=== PATIENT | female | born 1955 | race Hispanic/Latino ===

== ENCOUNTER 2017-05-24 09:32 | Emergency (ER) | payer OTHER ==
[2017-05-24 09:32] VITALS: BMI 27.4
[2017-05-24] MEDS ORDERED: Morphine 4 mg/ml ISec IVP STA (09:58)
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
[2017-05-24] MEDS ORDERED: Barium Sulfate Susp 2.1% w/v, 2.0% w/w 450 mL Bottle PO ONE (10:01)
[2017-05-24 10:25] VITALS: TEMP 98.5
[2017-05-24 10:36] LABS: ALB/GLOB RATIO 1.4 (1.1-1.8); ALKALINE PHOSPHATASE 91 U/L (38-133); ALT/SGPT 64 U/L (7-56); AST/SGOT 74 U/L (15-39); BASO # 0.03 K/mm3 (0.0-2.0); BASO % 0.6 % (0.0-3.0); BILIRUBIN,TOTAL 0.6 mg/dL (0.2-1.3); BLOOD UREA NITROGEN 15 mg/dL (7-21); CALCIUM 9.4 mg/dL (8.4-10.5); CARBON DIOXIDE 26 mmol/L (21-33); CHLORIDE 104 mmol/L (98-107); EOS # 0.2 (0.0-0.7); EOS % 2.8 % (1.5-5.0); GFR AFRICAN-AMERICAN > 60; GLUCOSE,RANDOM 100 mg/dL (70-110); GRAN # 2.78 (1.4-6.5); GRAN % 52.5 % (50.0-68.0); HEMATOCRIT 39.1 % (36.0-48.0); LIPASE 95 U/L (23-300); LYMPH # 1.9 (1.2-3.4); LYMPH % 36.7 % (22.0-35.0); MEAN CELL VOLUME 88.1 fl (80.0-105.0); MEAN CORPUSCULAR HEMOGLOBIN 29.7 pg (25.0-35.0); MEAN CORPUSCULAR HGB CONC 33.8 g/dl (31.0-37.0); MEAN PLATELET VOLUME 8.2 fl (7.0-11.0); MONO # 0.4 (0.1-0.6); MONO % 7.4 % (1.0-6.0); POTASSIUM 4.2 mmol/L (3.6-5.0); RED CELL DISTRIBUTION WIDTH 13.7 % (11.5-14.5); SODIUM 142 mmol/L (132-148); TOTAL PROTEIN 7.3 g/dL (5.8-8.3); WHITE BLOOD COUNT 5.3 10^3/ul (4.5-11.0)
[2017-05-24 10:40] LABS: INR 0.93 (0.93-1.08)
--- NOTE | 2017-05-24 11:01 | CT ---
PROCEDURE: CT Abdomen and Pelvis without intravenous contrast HISTORY: abd pain r/o obstruction COMPARISON: None. TECHNIQUE: Without contrast.. Contrast Dose: 0 Radiation dose: Total exam DLP = 1024.63 mGy-cm. This CT exam was performed using one or more of the following dose reduction techniques: Automated exposure control, adjustment of the mA and/or kV according to patient size, and/or use of iterative reconstruction technique. FINDINGS: LOWER THORAX: Unremarkable. LIVER: Unremarkable. No gross lesion or ductal dilatation. GALLBLADDER AND BILE DUCTS: Unremarkable. PANCREAS: Unremarkable. No gross lesion or ductal dilatation. SPLEEN: Unremarkable. ADRENALS: Unremarkable. No mass. KIDNEYS AND URETERS: Unremarkable. No hydronephrosis. No solid mass. VASCULATURE: Unremarkable. No aortic aneurysm. BOWEL: Unremarkable. No obstruction. No gross mural thickening. APPENDIX: Unremarkable. Normal appendix. PERITONEUM: Unremarkable. No free fluid. No free air. LYMPH NODES: Unremarkable. No enlarged lymph nodes. BLADDER: Nondistended REPRODUCTIVE: Status post hysterectomy BONES: Multilevel lumbar degenerative disc disease. OTHER FINDINGS: None. IMPRESSION: No acute abnormality. No evidence of bowel obstruction.
[2017-05-24 11:32] VITALS: O2SAT 98
[2017-05-24 11:36] LABS: PH,URINE 5.5 (4.7-8.0); URINE BILIRUBIN NEGATIVE (NEGATIVE); URINE BLOOD NEGATIVE (NEGATIVE); URINE COLOR YELLOW (YELLOW); URINE GLUCOSE (UA) NEGATIVE (NEGATIVE); URINE KETONE TRACE mg/dL (NEGATIVE); URINE LEUKOCYTE ESTERASE TRACE Leu/uL (NEGATIVE); URINE PROTEIN NEGATIVE mg/dL (<30 mg/dL); URINE UROBILINOGEN 0.2 E.U./dL (<1 E.U./dL)
[2017-05-24 11:37] LABS: URINE APPEARANCE CLEAR (CLEAR)
[2017-05-24 11:43] LABS: URINE BACTERIA MOD (NEG); URINE RBC 0 - 2 /hpf (0-2)
[2017-05-24 11:44] LABS: URINE AMORPHOUS SEDIMENT FEW
[2017-05-24 12:32] VITALS: BP 115/60; PULSE 63; RESP 17
== END 2017-05-24 12:50 | disposition home or self-care (01) ==
LOC: ED 09:32
DX: N39.0 Urinary tract infection, site not specified (principal); R10.9 Unspecified abdominal pain; K42.9 Umbilical hernia without obstruction or gangrene
CPT/HCPCS: 74176; 80053; 81001; 82948; 83690; 85025; 85610; 85730; 86850; 86900; 87086; 96374; 96375; 99285; J2270

== ENCOUNTER 2017-11-01 15:44 | Emergency (ER) | payer OTHER ==
[2017-11-01 15:52] VITALS: BMI 33.8
[2017-11-01 16:00] VITALS: RESP 18
[2017-11-01] MEDS ORDERED: Amoxicillin-Clav 875-125 mg Tab PO STA (16:40)
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
[2017-11-01 17:33] VITALS: BP 122/70; PULSE 80; TEMP 97.7; O2SAT 99
== END 2017-11-01 17:25 | disposition home or self-care (01) ==
LOC: ED 15:44
DX: L57.0 Actinic keratosis (principal); R21 Rash and other nonspecific skin eruption

== ENCOUNTER 2018-01-31 12:05 | Emergency (ER) | payer OTHER ==
[2018-01-31 12:18] VITALS: TEMP 98.5
[2018-01-31 12:19] VITALS: BMI 34.7
[2018-01-31] MEDS ORDERED: Sodium Chloride 0.9% 1,000 ML IV STA (12:30)
[2018-01-31] MEDS ORDERED: Morphine 4 mg/ml ISec IVP STA (12:46)
[2018-01-31] MEDS ORDERED: Iohexol 350 MG/100 ML VIAL ONE (12:48)
[2018-01-31 12:50] LABS: URINE BILIRUBIN NEGATIVE (NEGATIVE); URINE BLOOD NEGATIVE (NEGATIVE); URINE GLUCOSE (UA) NEGATIVE (NEGATIVE); URINE LEUKOCYTE ESTERASE NEGATIVE Leu/uL (NEGATIVE); URINE PROTEIN NEGATIVE mg/dL (<30 mg/dL); URINE UROBILINOGEN 0.2 E.U./dL (<1 E.U./dL)
[2018-01-31 12:51] LABS: URINE APPEARANCE CLEAR (CLEAR); URINE COLOR YELLOW (YELLOW)
[2018-01-31] MEDS ORDERED: Barium Sulfate Susp 2.1% w/v, 2.0% w/w 450 mL Bottle PO ONE (12:51)
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
[2018-01-31 13:09] LABS: BASO # 0.02 K/mm3 (0.0-2.0); BASO % 0.3 % (0.0-3.0); EOS # 0.1 (0.0-0.7); EOS % 1.6 % (1.5-5.0); GRAN # 3.5 (1.4-6.5); GRAN % 60.7 % (50.0-68.0); HEMOGLOBIN 12.8 g/dL (12.0-16.0); LYMPH # 1.8 (1.2-3.4); LYMPH % 30.5 % (22.0-35.0); MEAN CELL VOLUME 88.1 fl (80.0-105.0); MEAN PLATELET VOLUME 8.6 fl (7.0-11.0); MONO # 0.4 (0.1-0.6); MONO % 6.9 % (1.0-6.0); RBC 4.27 10^6/uL (3.5-6.1); WHITE BLOOD COUNT 5.8 10^3/ul (4.5-11.0)
[2018-01-31 13:18] LABS: INR 1.04 (0.93-1.08); PARTIAL THROMBOPLASTIN TIME 28.9 Seconds (25.1-36.5)
[2018-01-31 13:25] VITALS: O2SAT 98
[2018-01-31 13:28] LABS: ALB/GLOB RATIO 1.3 (1.1-1.8); ALBUMIN 4.1 g/dL (3.0-4.8); ALT/SGPT 96 U/L (7-56); AST/SGOT 153 U/L (14-36); BLOOD UREA NITROGEN 10 mg/dL (7-21); GFR AFRICAN-AMERICAN > 60; GFR NON-AFRICAN AMERICAN > 60; LIPASE 58 U/L (23-300)
[2018-01-31 15:01] VITALS: RESP 18
--- NOTE | 2018-01-31 15:36 | CT ---
PROCEDURE: CT Abdomen and Pelvis with Oral contrast. HISTORY: abd pain r/o obstruction COMPARISON: Hernia. TECHNIQUE: Contiguous axial images of the abdomen and pelvis. Oral contrast was administered. No IV contrast given. Coronal and Sagittal reformats generated. Radiation dose: Total exam DLP = This CT exam was performed using one or more of the following dose reduction techniques: Automated exposure control, adjustment of the mA and/or kV according to patient size, and/or use of iterative reconstruction technique. FINDINGS: LOWER THORAX: Evaluation of the lung bases reveals mild interstitial change and scarring, without focal infiltrate or effusion. Distal esophagus shows minor thickening without hiatal hernia. No pericardial effusion is seen. Visualized stomach and duodenum are unremarkable. LIVER: Noncontrast images of the liver show no evidence of new mass or intrahepatic ductal dilatation. GALLBLADDER AND BILE DUCTS: Unremarkable. PANCREAS: Unremarkable. No mass. No ductal dilatation. SPLEEN: Unremarkable. No splenomegaly. ADRENALS: Unremarkable. KIDNEYS AND URETERS: Kidneys show no evidence of hydronephrosis, mass, or calculus. No perinephric changes are seen. BLADDER: Bladder is decompressed but otherwise normal in outline. REPRODUCTIVE: Uterus appears to been previously removed. No pelvic masses are noted. APPENDIX: Unremarkable. BOWEL: Colon shows no evidence of colonic wall thickening or pericolonic inflammatory change. No small bowel obstruction is appreciated. There may be some slight fold thickening of the small bowel which may suggest mild enteritis although no significant mesenteric thickening or adenopathy is noted. PERITONEUM: No ascites is seen. There is evidence of a previously noted small umbilical hernia with fat but no appreciable bowel. LYMPH NODES: Unremarkable. No enlarged lymph nodes. VASCULATURE: Unchanged BONES: Degenerative changes are seen in the spine. No lytic process is noted. OTHER FINDINGS: None. IMPRESSION: No appreciable CT scan evidence of bowel obstruction. No CT scan evidence of acute colitis. Mild fold thickening of the small bowel which may suggest some mild enteritis. No CT scan evidence of appendicitis. Stable small umbilical
[2018-01-31 15:39] VITALS: BP 114/66; PULSE 62
== END 2018-01-31 17:35 | disposition home or self-care (01) ==
LOC: ED 12:05
DX: R10.9 Unspecified abdominal pain (principal); I10 Essential (primary) hypertension; I48.91 Unspecified atrial fibrillation; M06.9 Rheumatoid arthritis, unspecified; J44.9 Chronic obstructive pulmonary disease, unspecified
CPT/HCPCS: 74176; 80053; 81003; 83690; 85025; 85610; 85730; 87086; 96374; 99284; J2270; J7040

== ENCOUNTER 2018-02-20 19:47 | Emergency (ER) | payer OTHER ==
[2018-02-20 19:48] VITALS: BMI 34.7
[2018-02-20 20:10] VITALS: RESP 18; TEMP 98.2
[2018-02-20] MEDS ORDERED: Clotrimazole 1% Cream(30 gm) TOP STA (20:20)
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
[2018-02-20 20:53] VITALS: BP 118/62; PULSE 82; O2SAT 99
== END 2018-02-20 20:56 | disposition home or self-care (01) ==
LOC: ED 19:47
DX: B36.8 Other specified superficial mycoses (principal); L03.311 Cellulitis of abdominal wall

== ENCOUNTER 2018-09-24 11:35 | Emergency (ER) | payer OTHER ==
[2018-09-24 11:56] VITALS: BMI 26.8
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
--- NOTE | 2018-09-24 12:43 | RAD ---
Date of service: 09/24/2018 HISTORY: chest pain COMPARISON: 09/23/2015 FINDINGS: LUNGS: No active pulmonary disease. PLEURA: No significant pleural effusion identified, no pneumothorax apparent. CARDIOVASCULAR: No aortic atherosclerotic calcification present. Normal cardiac size. No pulmonary vascular congestion. OSSEOUS STRUCTURES: No significant abnormalities. VISUALIZED UPPER ABDOMEN: Normal. OTHER FINDINGS: None. IMPRESSION: No active disease.
[2018-09-24 13:08] LABS: BASO # 0.02 K/mm3 (0.0-2.0); BASO % 0.3 % (0.0-3.0); EOS % 0.5 % (1.5-5.0); GRAN # 3.49 (1.4-6.5); GRAN % 56.2 % (50.0-68.0); HEMOGLOBIN 13.6 g/dL (12.0-16.0); LYMPH # 2.3 (1.2-3.4); LYMPH % 36.2 % (22.0-35.0); MEAN CORPUSCULAR HEMOGLOBIN 29.6 pg (25.0-35.0); MEAN CORPUSCULAR HGB CONC 33.6 g/dl (31.0-37.0); MEAN PLATELET VOLUME 8.7 fl (7.0-11.0); MONO # 0.4 (0.1-0.6); MONO % 6.8 % (1.0-6.0); RBC 4.6 10^6/uL (3.5-6.1); RED CELL DISTRIBUTION WIDTH 13.9 % (11.5-14.5); WHITE BLOOD COUNT 6.2 10^3/uL (4.5-11.0)
[2018-09-24 13:18] LABS: INR 1.07; PARTIAL THROMBOPLASTIN TIME 24.3 Seconds (25.1-36.5); PROTHROMBIN TIME 12.2 SECONDS (9.4-12.5)
[2018-09-24 13:22] LABS: ALB/GLOB RATIO 1.3 (1.1-1.8); ALBUMIN 4.2 g/dL (3.0-4.8); ALT/SGPT 78 U/L (7-56); AST/SGOT 109 U/L (14-36); BLOOD UREA NITROGEN 10 mg/dL (7-21); CALCIUM 9.1 mg/dL (8.4-10.5); GFR NON-AFRICAN AMERICAN > 60
[2018-09-24 13:32] LABS: B-TYPE NATRIURETIC PEPTIDE 240 pg/mL (0-450); TROPONIN I < 0.01 ng/mL
[2018-09-24 13:39] LABS: FREE T4 1.33 ng/dL (0.78-2.19)
[2018-09-24] MEDS ORDERED: Morphine 2 mg/ml ISec IVP STA (13:52)
[2018-09-24 14:27] VITALS: BP 110/58; PULSE 66; O2SAT 97
[2018-09-24 14:47] VITALS: RESP 17; TEMP 98.1
--- NOTE | 2018-09-24 15:44 | CARD ---
APPROVED REPORT Date of service: 09/24/2018 EKG Measurement Heart [id number] <Conclusion> Sinus rhythm with 1st degree AV block with premature atrial complex with aberrant conduction STTW changes c/w ischemia
== END 2018-09-24 14:46 | disposition home or self-care (01) ==
LOC: ED 11:35
DX: R00.2 Palpitations (principal); I10 Essential (primary) hypertension; J44.9 Chronic obstructive pulmonary disease, unspecified; F41.9 Anxiety disorder, unspecified; Z95.5 Presence of coronary angioplasty implant and graft
CPT/HCPCS: 71045; 80053; 82550; 83615; 83735; 83880; 84100; 84439; 84443; 84484; 85025; 85610; 85730; 93005; 96374; 99283; J2270

== ENCOUNTER 2018-09-28 17:54 | Emergency (ER) | payer OTHER ==
[2018-09-28 18:05] VITALS: BMI 37.5
[2018-09-28 18:13] VITALS: TEMP 98.2
[2018-09-28] MEDS ORDERED: Sodium Chloride 0.9% 1,000 ML IV STA (18:55)
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
[2018-09-28] MEDS ORDERED: Morphine 4 mg/ml ISec IVP STA (19:38)
[2018-09-28 19:47] LABS: PH,URINE 5.5 (4.7-8.0); URINE BILIRUBIN NEGATIVE (NEGATIVE); URINE BLOOD NEGATIVE (NEGATIVE); URINE GLUCOSE (UA) NEGATIVE (NEGATIVE); URINE LEUKOCYTE ESTERASE NEGATIVE Leu/uL (NEGATIVE); URINE PROTEIN NEGATIVE mg/dL (<30 mg/dL); URINE UROBILINOGEN 0.2 E.U./dL (<1 E.U./dL)
[2018-09-28 19:51] LABS: VENOUS BLOOD GAS BASE EXCESS 2.6 mmol/L (0.0-2.0); VENOUS BLOOD GAS PO2 162 mm/Hg (30-55); VENOUS BLOOD PH 7.43 (7.32-7.43)
[2018-09-28 19:51] LABS: URINE APPEARANCE CLEAR (CLEAR); URINE COLOR LIGHT YELLOW (YELLOW)
[2018-09-28 19:54] LABS: BASO # 0.02 K/mm3 (0.0-2.0); BASO % 0.3 % (0.0-3.0); EOS # 0.1 (0.0-0.7); EOS % 1.4 % (1.5-5.0); GRAN # 3.8 (1.4-6.5); GRAN % 51.7 % (50.0-68.0); HEMOGLOBIN 13.8 g/dL (12.0-16.0); LYMPH # 2.9 (1.2-3.4); LYMPH % 39.7 % (22.0-35.0); MEAN CELL VOLUME 88.6 fl (80.0-105.0); MEAN CORPUSCULAR HEMOGLOBIN 29.8 pg (25.0-35.0); MEAN CORPUSCULAR HGB CONC 33.7 g/dl (31.0-37.0); MEAN PLATELET VOLUME 8.8 fl (7.0-11.0); MONO # 0.5 (0.1-0.6); MONO % 6.9 % (1.0-6.0); RBC 4.63 10^6/uL (3.5-6.1); RED CELL DISTRIBUTION WIDTH 13.8 % (11.5-14.5); WHITE BLOOD COUNT 7.4 10^3/uL (4.5-11.0)
[2018-09-28 20:04] LABS: ALB/GLOB RATIO 1.3 (1.1-1.8); ALBUMIN 4.4 g/dL (3.0-4.8); ALT/SGPT 82 U/L (7-56); AST/SGOT 119 U/L (14-36); BLOOD UREA NITROGEN 18 mg/dL (7-21); CALCIUM 9.2 mg/dL (8.4-10.5); GFR NON-AFRICAN AMERICAN > 60; LIPASE 88 U/L (23-300)
[2018-09-28 21:33] VITALS: BP 120/82; PULSE 72; RESP 17; O2SAT 98
--- NOTE | 2018-09-29 08:16 | RAD ---
Date of service: 09/28/2018 HISTORY: abdominal pain COMPARISON: Portable chest 09/24/2018. FINDINGS: LUNGS: No active pulmonary disease. PLEURA: No significant pleural effusion identified, no pneumothorax apparent. CARDIOVASCULAR: Calcific atherosclerotic changes are seen related to the thoracic aorta. Normal cardiac size. No pulmonary vascular congestion. OSSEOUS STRUCTURES: No significant abnormalities. VISUALIZED UPPER ABDOMEN: Mild right hemidiaphragm elevation noted. OTHER FINDINGS: None. IMPRESSION: No definite acute cardiopulmonary disease appreciable. Mild right hemidiaphragm elevation noted.
--- NOTE | 2018-09-29 08:46 | CT ---
Date of service: 09/28/2018 PROCEDURE: CT Abdomen and Pelvis without intravenous contrast HISTORY: possible kidney stones COMPARISON: None. TECHNIQUE: Technique. Contrast dose: Radiation dose: Total exam DLP = 966.31 mGy-cm. This CT exam was performed using one or more of the following dose reduction techniques: Automated exposure control, adjustment of the mA and/or kV according to patient size, and/or use of iterative reconstruction technique. FINDINGS: LOWER THORAX: Unremarkable. Small hiatal hernia. LIVER: Unremarkable. No gross lesion or ductal dilatation. GALLBLADDER AND BILE DUCTS: Unremarkable. PANCREAS: Unremarkable. No gross lesion or ductal dilatation. SPLEEN: Unremarkable. ADRENALS: Unremarkable. No mass. KIDNEYS AND URETERS: Unremarkable. No hydronephrosis. No solid mass. VASCULATURE: Unremarkable. No aortic aneurysm. Aortic calcifications. BOWEL: Colonic diverticulosis no obstruction. No gross mural thickening. APPENDIX: Unremarkable. Normal appendix. PERITONEUM: Unremarkable. No free fluid. No free air. LYMPH NODES: Unremarkable. No enlarged lymph nodes. BLADDER: Unremarkable. REPRODUCTIVE: Hysterectomy. BONES: No acute fracture. OTHER FINDINGS: None. IMPRESSION: No acute pathology.
--- NOTE | 2018-09-30 00:09 | CARD ---
APPROVED REPORT Date of service: 09/28/2018 EKG Measurement Heart [id number] <Conclusion> Sinus rhythm with 1st degree AV block Possible Left atrial enlargement Low voltage QRS Borderline ECG
== END 2018-09-28 21:32 | disposition home or self-care (01) ==
LOC: ED 17:54
DX: N23 Unspecified renal colic (principal); I10 Essential (primary) hypertension; E11.9 Type 2 diabetes mellitus without complications; Z95.5 Presence of coronary angioplasty implant and graft
CPT/HCPCS: 71045; 74176; 80053; 81003; 82803; 83690; 83735; 85025; 93005; 96361; 96374; 99284; J2270; J7030

== ENCOUNTER 2018-10-11 19:47 | Observation (INO) | payer OTHER ==
[2018-10-11 19:47] VITALS: BMI 36.6
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
[2018-10-11] MEDS ORDERED: Morphine 2 mg/ml ISec IVP STA (20:26)
[2018-10-11 20:29] LABS: BASO # 0.01 K/mm3 (0.0-2.0); BASO % 0.1 % (0.0-3.0); EOS # 0.1 (0.0-0.7); EOS % 1.3 % (1.5-5.0); GRAN # 4.76 (1.4-6.5); GRAN % 59.6 % (50.0-68.0); HEMOGLOBIN 13.1 g/dL (12.0-16.0); LYMPH # 2.6 (1.2-3.4); LYMPH % 32.7 % (22.0-35.0); MEAN CELL VOLUME 88.9 fl (80.0-105.0); MEAN CORPUSCULAR HEMOGLOBIN 29.7 pg (25.0-35.0); MEAN CORPUSCULAR HGB CONC 33.4 g/dl (31.0-37.0); MEAN PLATELET VOLUME 8.5 fl (7.0-11.0); MONO # 0.5 (0.1-0.6); MONO % 6.3 % (1.0-6.0); RBC 4.41 10^6/uL (3.5-6.1); RED CELL DISTRIBUTION WIDTH 13.8 % (11.5-14.5)
[2018-10-11 20:51] LABS: TROPONIN I < 0.01 ng/mL
[2018-10-11 20:52] LABS: ALB/GLOB RATIO 1.4 (1.1-1.8); ALBUMIN 4.4 g/dL (3.0-4.8); ALT/SGPT 75 U/L (7-56); AST/SGOT 125 U/L (14-36); BLOOD UREA NITROGEN 12 mg/dL (7-21); CALCIUM 9.4 mg/dL (8.4-10.5); GFR NON-AFRICAN AMERICAN > 60
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
[2018-10-11 22:02] VITALS: O2SAT 97
[2018-10-11] MEDS: Sodium Chloride 0.9% 1,000 ML IV SCH (23:09)
[2018-10-12] MEDS ORDERED: Nitroglycerin 2% Ointment Foilpak UD TOP PRN
[2018-10-12] MEDS ORDERED: Morphine 2 mg/ml ISec IVP STA (05:54)
[2018-10-12 07:02] LABS: BASO # 0.01 K/mm3 (0.0-2.0); BASO % 0.2 % (0.0-3.0); EOS # 0.1 (0.0-0.7); EOS % 1.6 % (1.5-5.0); GRAN # 2.52 (1.4-6.5); GRAN % 45.2 % (50.0-68.0); HEMOGLOBIN 11.4 g/dL (12.0-16.0); LYMPH # 2.6 (1.2-3.4); LYMPH % 45.8 % (22.0-35.0); MEAN CELL VOLUME 88.9 fl (80.0-105.0); MEAN CORPUSCULAR HEMOGLOBIN 28.8 pg (25.0-35.0); MEAN CORPUSCULAR HGB CONC 32.4 g/dl (31.0-37.0); MEAN PLATELET VOLUME 8.9 fl (7.0-11.0); MONO # 0.4 (0.1-0.6); MONO % 7.2 % (1.0-6.0); RBC 3.96 10^6/uL (3.5-6.1); RED CELL DISTRIBUTION WIDTH 13.8 % (11.5-14.5); WHITE BLOOD COUNT 5.6 10^3/uL (4.5-11.0)
[2018-10-12 07:12] LABS: ALB/GLOB RATIO 1.3 (1.1-1.8); ALBUMIN 3.7 g/dL (3.0-4.8); ALT/SGPT 69 U/L (7-56); AST/SGOT 88 U/L (14-36); BLOOD UREA NITROGEN 14 mg/dL (7-21); CALCIUM 8.7 mg/dL (8.4-10.5); GFR NON-AFRICAN AMERICAN > 60
[2018-10-12] MEDS ORDERED: Potassium Chloride 20 mEq ER Tab PO ONE (07:48)
--- NOTE | 2018-10-12 08:43 | RAD ---
Date of service: 10/11/2018 HISTORY: chest pain COMPARISON: 09/28/2018. FINDINGS: LUNGS: The lungs are well inflated and clear. PLEURA: No pleural effusions or pneumothorax. CARDIOVASCULAR: The heart is normal in size. No aortic atherosclerotic calcification present. OSSEOUS STRUCTURES: Within normal limits for the patient's age. VISUALIZED UPPER ABDOMEN: Normal. OTHER FINDINGS: None. IMPRESSION: No active pulmonary disease.
[2018-10-12] MEDS: Insulin Reg-LOW-Coverage SC SCH ×3 (11:14→16:11)
--- NOTE | 2018-10-12 14:07 | CON ---
DATE: 10/12/2018 CARDIOLOGY CONSULTATION HISTORY: The patient is a 63-year-old woman, who presents with classic angina. PAST MEDICAL HISTORY: The patient's past medical history is notable for hypertension, diabetes mellitus and hypercholesterolemia. She underwent a stress test 2 weeks ago, which was abnormal. She was trying to decide on whether she would agree to cardiac catheterization. She presented to the emergency room with progressive symptoms including angina at rest. SOCIAL HISTORY: The patient denies smoking. REVIEW OF SYSTEMS: Fourteen-point review of systems is reviewed in detail. No ulcers. No edema. No dyspnea noted. No bleeding history. PHYSICAL EXAMINATION: VITAL SIGNS: Blood pressure is 99/63, heart rate is in the 60s. NECK: Negative JVD. LUNGS: Without rales. CARDIOVASCULAR: Heart rate S1, S2. EXTREMITIES: Without edema. EKG shows normal sinus rhythm with nonspecific ST-T changes. LABORATORY DATA: Hemoglobin is 11.4. Chemistries, BUN and creatinine, unremarkable. Glucose is 191. Troponins are negative x2. IMPRESSION: 1. Unstable angina. 2. High probability for coronary artery disease. 3. Diabetes mellitus. 4. Hypercholesterolemia. PLAN: Given these findings, we will place the patient on aspirin and Plavix. We will proceed to cardiac catheterization in the morning. Risks and benefits have been discussed with the patient in detail. Alfonso Santana MD
[2018-10-12] MEDS: Sodium Chloride 0.9% 1,000 ML IV SCH (14:21)
--- NOTE | 2018-10-12 20:14 | CARD ---
APPROVED REPORT Date of service: 10/11/2018 EKG Measurement Heart [id number] <Conclusion> Sinus rhythm with 1st degree AV block with premature ventricular complexes Otherwise normal ECG
--- NOTE | 2018-10-12 20:43 | CP.PCM.PN ---
Subjective - Date & Time of Evaluation Date of Evaluation: 10/12/18 Time of Evaluation: 07:00 - Subjective Subjective: Pt seen and examined this morning. Pt reports chest pain, which has improved and some mild trouble breathing. Objective - Vital Signs/Intake and Output Vital Signs (last 24 hours): Temp Pulse Resp BP Pulse Ox 97.8 F 76 19 136/74 97 10/12/18 18:00 10/12/18 18:00 10/12/18 18:00 10/12/18 18:00 10/11/18 22:02 Intake and Output: 10/12/18 10/13/18 18:59 06:59 Intake Total 900 Balance 900 - Medications Medications: Current Medications Aspirin (Ecotrin) 81 mg PO DAILY [facility] Last Admin: 10/12/18 11:02 Dose: 81 mg Atorvastatin Calcium (Lipitor) 40 mg PO DIN [facility] Last Admin: 10/12/18 17:33 Dose: 40 mg Clopidogrel Bisulfate (Plavix) 75 mg PO DAILY [facility] Last Admin: 10/12/18 11:02 Dose: 75 mg Sodium Chloride (Sodium Chloride 0.9%) 1,000 mls @ 75 mls/hr IV [id number] [facility] Last Admin: 10/12/18 14:21 Dose: 75 mls/hr Insulin Human Regular (Humulin R Low) 0 units SC [facility]; Protocol Last Admin: 10/12/18 16:11 Dose: Not Given Metoprolol Tartrate (Lopressor) 50 mg PO BID [facility] Last Admin: 10/12/18 17:33 Dose: 50 mg Nitroglycerin (Nitro-Bid 2% Oint) 1 ea TOP Q6 PRN PRN Reason: chest pain Last Admin: 10/12/18 01:15 Dose: 1 ea - Labs Labs: 10/12/18 06:00 10/12/18 06:00 - Constitutional Appears: No Acute Distress - Head Exam Head Exam: ATRAUMATIC, NORMOCEPHALIC - Eye Exam Eye Exam: EOMI - ENT Exam ENT Exam: Mucous Membranes Moist - Neck Exam Neck Exam: Full ROM - Respiratory Exam Respiratory Exam: Clear to Ausculation Bilateral, NORMAL BREATHING PATTERN. absent: Accessory Muscle Use, Respiratory Distress - Cardiovascular Exam Cardiovascular Exam: RRR, +S1, +S2. absent: Diastolic murmur, Murmur - GI/Abdominal Exam GI & Abdominal Exam: Soft, Normal Bowel Sounds - Extremities Exam Extremities Exam: Full ROM. absent: Calf Tenderness, Pedal Edema - Neurological Exam Neurological Exam: Alert, Awake, Oriented x3 - Psychiatric Exam Psychiatric exam: Normal Affect, Normal Mood - Skin Skin Exam: Dry, Intact, Warm Assessment and Plan - Assessment and Plan (Free Text) Assessment: Pt is a 63yo female with a PMH of CAD with stent placement and DM who presented to the ED with left sided chest pain. Plan: Chest Pain, rule out ACS - troponin negative x2 - EKG shows no signs of ischemia - Dr Santana, place pt on ASA and plavix, cardiac cath in the morning CAD - ASA - plavix - metoprolol DM - glucose 136 - accuchecks Transaminitis - AST 88 - ALT 69 - continue to monitor Ppx - HHD Pt seen, examined, assessment and plan discussed with Dr Ronak Hughes PGY1, Internal Medicine Resident
[2018-10-13] MEDS: Sodium Chloride 0.9% 1,000 ML IV SCH ×2 (04:57→10:22)
[2018-10-13 06:36] LABS: BASO # 0.01 K/mm3 (0.0-2.0); BASO % 0.2 % (0.0-3.0); EOS # 0.1 (0.0-0.7); EOS % 1.6 % (1.5-5.0); GRAN # 2.88 (1.4-6.5); GRAN % 49.6 % (50.0-68.0); LYMPH # 2.5 (1.2-3.4); LYMPH % 43.1 % (22.0-35.0); MEAN CELL VOLUME 88.6 fl (80.0-105.0); MEAN CORPUSCULAR HGB CONC 32.7 g/dl (31.0-37.0); MEAN PLATELET VOLUME 8.8 fl (7.0-11.0); MONO # 0.3 (0.1-0.6); MONO % 5.5 % (1.0-6.0); RBC 4.14 10^6/uL (3.5-6.1); RED CELL DISTRIBUTION WIDTH 13.9 % (11.5-14.5); WHITE BLOOD COUNT 5.8 10^3/uL (4.5-11.0)
[2018-10-13] MEDS: Insulin Reg-LOW-Coverage SC SCH ×4 (06:41→18:06)
[2018-10-13 06:52] LABS: ALB/GLOB RATIO 1.3 (1.1-1.8); ALBUMIN 3.9 g/dL (3.0-4.8); ALT/SGPT 69 U/L (7-56); AST/SGOT 91 U/L (14-36); BLOOD UREA NITROGEN 10 mg/dL (7-21); CALCIUM 8.7 mg/dL (8.4-10.5); GFR NON-AFRICAN AMERICAN > 60; HDL CHOLESTEROL 45 mg/dL (29-60)
[2018-10-13 07:03] LABS: LDL CHOLESTEROL 113 mg/dL (0-129)
[2018-10-13 07:08] LABS: FREE T4 1.16 ng/dL (0.78-2.19)
[2018-10-13] MEDS ORDERED: Famotidine 20mg/50ml 20 MG/50 ML BAG IVPB ONE (08:37)
[2018-10-13] MEDS ORDERED: DiphenhydrAMINE 50 mg/ml Inj ONE (08:37)
[2018-10-13] MEDS ORDERED: Iohexol 350mgl/ml 50 ML ONE (08:41)
[2018-10-13] MEDS ORDERED: Lidocaine 2% Inj (20ml) ONE (08:41)
[2018-10-13] MEDS ORDERED: Iodixanol 320 MG/ML 200 ML BOTTLE IV ONE (08:41)
[2018-10-13] MEDS ORDERED: Midazolam 2 MG/2 ML VIAL ONE ×2 (09:02→09:16)
--- NOTE | 2018-10-13 11:51 | CARDCATH ---
PROCEDURE DATE: 10/13/2018 HISTORY: The patient is a 63-year-old woman with multiple cardiac risk factors including diabetes mellitus, hypertension and hypercholesterolemia with documented PTCA and stent of the circumflex artery in the past who presents with symptoms consistent with unstable angina. Troponins were negative. However, a stress test performed 1 week ago revealed new ischemic changes in the anterior wall. Because of this, cardiac catheterization was recommended. PROCEDURE: Left and heart catheterization with coronary arteriography and left ventriculogram. The right femoral artery was cannulated with 6-[place] sheath. There were no complications. I performed moderate sedation which included the presence of an independent trained observer that assisted in monitoring the patient's level of consciousness and physiologic status. After administration of Versed and fentanyl, my intra-service time was 15 minutes. Findings on catheterization revealed a left ventricle that contracted normally. Estimated ejection fraction of 60%. The patient had a right dominant circulation. The RCA revealed intimal irregularities without significant stenoses. The left main artery was unremarkable. The circumflex artery and obtuse marginal branches revealed intimal irregularities with a patent stent in the midportion. The LAD and diagonal vessels revealed a 20% stenosis in the proximal portion of the LAD without critical lesions. Angio-Seal was used to close the femoral artery site. The patient tolerated the procedure well. SUMMARY: The procedure revealed, 1. Normal left ventricular function. 2. Diffuse atherosclerosis in the coronary tree, but no critical lesions noted. 3. A patent stent in the circumflex artery. 4. Consistent with single vessel coronary artery disease. PLAN: Given these findings, the patient's treatment should be daily aspirin, and a cardiac risk reduction program which should include statin therapy as well as weight reduction. Her chest pain cannot be explained by ischemic coronary disease. From a cardiac perspective, the patient can be discharged today after 5 o'clock. Alfonso Santana MD
[2018-10-13 12:54] VITALS: RESP 20
[2018-10-13] MEDS ORDERED: Pantoprazole 40 mg EC Tab PO ONE (14:44)
--- NOTE | 2018-10-13 16:52 | CP.PCM.DIS ---
Provider - Provider Date of Admission: 10/11/18 20:54 Attending physician: Len Simons MD Consults: 10/11/18 20:26 Consult [Physician Consult] Stat Comment: Consulting Provider: Alfonso Santana Consulting Physician: Alfonso Santana Reason for Consult: chest pain 10/12/18 04:27 Transition In Care/Readmission Reduction Routine Comment: Physician Instructions: Reason For Exam: protocol 10/12/18 04:38 Case Management Referral Routine Comment: Physician Instructions: Reason For Exam: protocol Reason for Referral: Discharge Planning Time Spent in preparation of Discharge (in minutes): 35 Diagnosis - Discharge Diagnosis (1) Chest pain Status: Acute Priority: High (2) CAD (coronary artery disease) Status: Chronic Priority: High (3) Diabetes Status: Chronic Priority: High Hospital Course - Lab Results Lab Results: Most Recent Lab Values WBC 5.8 10^3/uL (4.5-11.0) 10/13/18 06:00 RBC 4.14 10^6/uL (3.5-6.1) 10/13/18 06:00 Hgb 12.0 g/dL (12.0-16.0) 10/13/18 06:00 Hct 36.7 % (36.0-48.0) 10/13/18 06:00 MCV 88.6 fl (80.0-105.0) 10/13/18 06:00 MCH 29.0 pg (25.0-35.0) 10/13/18 06:00 MCHC 32.7 g/dl (31.0-37.0) 10/13/18 06:00 RDW 13.9 % (11.5-14.5) 10/13/18 06:00 Plt Count 265 10^3/uL (120.0-450.0) 10/13/18 06:00 MPV 8.8 fl (7.0-11.0) 10/13/18 06:00 Gran % 49.6 % (50.0-68.0) L 10/13/18 06:00 Lymph % (Auto) 43.1 % (22.0-35.0) H 10/13/18 06:00 [place] % (Auto) 5.5 % (1.0-6.0) 10/13/18 06:00 Eos % (Auto) 1.6 % (1.5-5.0) 10/13/18 06:00 Baso % (Auto) 0.2 % (0.0-3.0) 10/13/18 06:00 Gran # 2.88 (1.4-6.5) 10/13/18 06:00 Lymph # (Auto) 2.5 (1.2-3.4) 10/13/18 06:00 [place] # (Auto) 0.3 (0.1-0.6) 10/13/18 06:00 Eos # (Auto) 0.1 (0.0-0.7) 10/13/18 06:00 Baso # (Auto) 0.01 K/mm3 (0.0-2.0) 10/13/18 06:00 Sodium 139 mmol/L (132-148) 10/13/18 06:00 Potassium 4.0 mmol/L (3.6-5.0) 10/13/18 06:00 Chloride 109 mmol/L (98-107) H 10/13/18 06:00 Carbon Dioxide 25 mmol/L (21-33) 10/13/18 06:00 Anion Gap 10 (10-20) 10/13/18 06:00 BUN 10 mg/dL (7-21) 10/13/18 06:00 Creatinine 0.6 mg/dl (0.7-1.2) L 10/13/18 06:00 Est GFR ( Amer) > 60 10/13/18 06:00 Est GFR (Non-Af Amer) > 60 10/13/18 06:00 POC Glucose (mg/dL) 287 mg/dL (65-110) H 10/13/18 15:52 Random Glucose 131 mg/dL (70-110) H 10/13/18 06:00 Calcium 8.7 mg/dL (8.4-10.5) 10/13/18 06:00 Phosphorus 3.8 mg/dL (2.5-4.5) 10/13/18 06:00 Magnesium 1.9 mg/dL (1.7-2.2) 10/13/18 06:00 Total Bilirubin 0.9 mg/dL (0.2-1.3) 10/13/18 06:00 AST 91 U/L (14-36) H 10/13/18 06:00 ALT 69 U/L (7-56) H 10/13/18 06:00 Alkaline Phosphatase 97 U/L (38-126) 10/13/18 06:00 Total Creatine Kinase 107 U/L (35-230) 10/11/18 20:20 Troponin I < 0.01 ng/mL 10/12/18 02:05 Total Protein 6.8 g/dL (5.8-8.3) 10/13/18 06:00 Albumin 3.9 g/dL (3.0-4.8) 10/13/18 06:00 Globulin 2.9 gm/dL 10/13/18 06:00 Albumin/Globulin Ratio 1.3 (1.1-1.8) 10/13/18 06:00 Triglycerides 151 mg/dL (35-160) 10/13/18 06:00 Cholesterol 190 mg/dL (130-200) 10/13/18 06:00 LDL Cholesterol Direct 113 mg/dL (0-129) 10/13/18 06:00 HDL Cholesterol 45 mg/dL (29-60) 10/13/18 06:00 Free T4 1.16 ng/dL (0.78-2.19) 10/13/18 06:00 TSH 3rd Generation 2.78 mIU/mL (0.46-4.68) 10/13/18 06:00 - Hospital Course Hospital Course: Upon Arrival Pt is a 63 yo female with PMH of CAD with stent placement, anxiety who presents with left sided chest pain. Patient states she has had the chest pain since August, describes it as achy and says it radiates to left hand. She states the pain is worse with activity and improves with rest, and worse with palpation. Patient has had stress test done in September which was abnormal and showed possible ischemia. Hospitalization Pt troponin came back negative, EKG showed no sings of ischemia. Cardiology, Dr Santana recommended placing pt on ASA and plavix, cardiac cath showed clean usama naries and that her previous stent looked like it was in good condition and patent. Pt home meds were continued for her CAD, ASA, plavix, and metoprolol. Discharge Please follow up with primary care physician within 3-5 days. Please follow up with [facility] within 1 week after discharge. Please continue to take medications as directed, you are being sent home with prescriptions for: - aspirin 81mg daily - metoprolol tartrate 50mg twice a day - Atorvastatin 40mg daily - plavix 75mg daily - protonix 20mg daily If symptoms return or worsen, please go to the nearest emergency department - Date & Time of H&P Date of H&P: 10/13/18 Time of H&P: 08:00 Discharge Exam - Head Exam Head Exam: ATRAUMATIC, NORMOCEPHALIC - Eye Exam Eye Exam: EOMI - ENT Exam ENT Exam: Mucous Membranes Moist - Respiratory Exam Respiratory Exam: NORMAL BREATHING PATTERN. absent: Accessory Muscle Use, Respiratory Distress - Cardiovascular Exam Cardiovascular Exam: RRR, +S1, +S2. absent: Diastolic murmur, Systolic Murmur - GI/Abdominal Exam GI & Abdominal Exam: Soft, Unremarkable. absent: Tenderness - Extremities Exam Extremities exam: full ROM, pedal pulses present - Neurological Exam Neurological exam: Alert, Oriented x3 - Psychiatric Exam Psychiatric exam: Normal Affect, Normal Mood - Skin Skin Exam: Dry, Intact, Warm Discharge Plan - Discharge Medications Prescriptions: Aspirin [Ecotrin] 81 mg PO DAILY #10 tabec Atorvastatin [Lipitor] 40 mg PO DIN #10 tab Clopidogrel [Plavix] 75 mg PO DAILY #10 tab Metoprolol Tartrate [Lopressor] 50 mg PO BID #20 tab Pantoprazole Sodium [Protonix] 40 mg PO DAILY #30 ect - Follow Up Plan Condition: FAIR Disposition: HOME/ ROUTINE Instructions: Chest Pain (ED) Additional Instructions: 1. please follow up with your primary care physician within 3-5 days 2. please follow up with your [facility] within 1 week 3. please continue to take your medications as directed, you are being sent home with prescriptions for: - aspirin 81mg daily - metoprolol tartrate 50mg twice a day - Atorvastatin 40mg daily - plavix 75mg daily - protonix 20mg daily 4. if your symptoms return or worsen, please go to the nearest emergency department
[2018-10-13 18:08] VITALS: BP 110/64
[2018-10-13 18:19] VITALS: PULSE 76; TEMP 98
[2018-10-14] MEDS ORDERED: Pantoprazole 40 mg EC Tab PO ONE (13:57)
== END 2018-10-13 20:15 | disposition home or self-care (01) ==
LOC: ED 19:47 → ERH 20:54 → 2RNO 23:57 → 2RSO 10-13 10:21
PROVIDERS: ADMIT Internal Medicine; ATTEND Hospitalist
DX: I25.110 Atherosclerotic heart disease of native coronary artery with unstable angina pectoris (principal); E11.9 Type 2 diabetes mellitus without complications; I10 Essential (primary) hypertension; E78.00 Pure hypercholesterolemia, unspecified; Z79.02 Long term (current) use of antithrombotics/antiplatelets; Z95.5 Presence of coronary angioplasty implant and graft; Z79.82 Long term (current) use of aspirin; Z87.891 Personal history of nicotine dependence
CPT/HCPCS: 36415; 71045; 80053; 80061; 82550; 82948; 83735; 84100; 84439; 84443; 84484; 85025; 93005; 93458; 96374; 99152; 99285; C1760; C1769; C2629; G0378; J1200; J1644; J2250; J2270; J2930; J3010; J7030; J7040; Q9966

== ENCOUNTER 2018-12-16 17:58 | Emergency (ER) | payer OTHER | END 2018-12-16 20:17 | disposition home or self-care (01) | LOC: ED 17:58 ==